=== PATIENT | female | born 1990 | race Caucasian/White ===

== ENCOUNTER → 2016-11-07 | Outpatient (CLI) | payer OTHER ==
[~2016-11-07] MED LIST: ACETAMINOPHEN-H1 TA2 PO; CEPHALEXIN500 M1 PO; CLARITIN10 MG PO; KEFLEX500 MG PO; NKHM; PHENERGAN25 M1 PO; SEPTRA DS 800 M1 TAB PO; VOLTAREN50 M1 PO; ZITHROMAX Z PA250 MG PO
== END | disposition home or self-care (01) ==
LOC: RAD 16:45
DX: M54.6 Pain in thoracic spine (principal); R05 Cough

== ENCOUNTER 2020-04-20 09:41 | Emergency (ER) | payer OTHER ==
[~2020-04-20] VITALS: Ht 162.5 cm; Wt 62.6 kg
[2020-04-20 10:05] LABS: BILIRUBIN NEGATIVE; BLOOD 3+ (NEGATIVE); CLARITY CLEAR (CLEAR); COLOR YELLOW (YELLOW); GLUCOSE NEGATIVE; KETONE NEGATIVE; SPECIFIC GRAVITY 1.015 (1.001-1.030); UROBILINOGEN 0.2 E.U./dl (0.0-1.0)
[2020-04-20 10:06] LABS: LEUKO ESTERASE TRACE (NEGATIVE); NITRITE NEGATIVE (NEGATIVE)
[2020-04-20 10:14] LABS: RBC 16-20 rbc/hpf (0-2)
[2020-04-20 10:15] LABS: BACTERIA 2+
== END 2020-04-20 12:11 | disposition home or self-care (01) ==
LOC: ED 09:41
PROVIDERS: Physician Assistant
DX: O20.9 Hemorrhage in early pregnancy, unspecified (principal); Z79.899 Other long term (current) drug therapy; Z3A.01 Less than 8 weeks gestation of pregnancy